=== PATIENT | male | born 1965 | race Caucasian/White ===

== ENCOUNTER 2020-09-07 07:24 | Observation (INO) | payer BC ==
[2020-09-07] MEDS ORDERED: ONDANSETRON 4 MG/2 ML VIAL ONE (07:59)
[2020-09-07] MEDS ORDERED: FENTANYL CITR 100 MCG/2 ML ONE (07:59)
[2020-09-07] MEDS ORDERED: NA CHLORIDE 0.9% 1,000 ML ONE (07:59)
[2020-09-07 08:32] LABS: Absolute Lymphocytes (CBC) 1.9 K/uL (0.7-4.9); Basophils % 0.5 % (0-1.3); Hematocrit 49.6 % (39.6-49.0); Lymphocytes % 13.5 % (15.3-44.8); MPV 8.2 fL (7.6-11.3); RBC Red Blood Cell Count 5.72 M/uL (4.33-5.43)
[2020-09-07 08:39] LABS: Urine Blood NEGATIVE (NEG); Urine Glucose NEGATIVE (NEG); Urine Protein NEGATIVE (NEG)
--- NOTE | 2020-09-07 08:39 | RAD REPORT ---
EXAM DESCRIPTION: CT - Chest For Pe Angio - 09/07/2020 8:25 am CLINICAL HISTORY: Dyspnea;PE, chest pain COMPARISON: Chest Single View dated 09/07/2020 TECHNIQUE: Dynamically enhanced 3 mm thick images of the chest were obtained during administration o f approximately 150mL Isovue 370 IV contrast. Coronal and oblique MIP reconstruction images were gene rated and reviewed. Exam utilizes a protocol to evaluate the pulmonary arterial tree. All CT scans are performed using dose optimization technique as appropriate and may include automated exposure control or mA/KV adjustment according to patient size. FINDINGS: No pulmonary emboli are identified. The aorta as imaged shows no acute or suspicious finding. No pericardial thickening or effusion. No infiltrate or mass in the lung parenchyma. No pleural effusion or pleural thickening. No mediastinal or hilar suspicious masses. No chest wall masses or abnormal axillary lymphadenopathy. No displaced rib fracture or suspicious rib lesion. IMPRESSION: No pulmonary emboli identified. No other significant or suspicious findings.
[2020-09-07 08:50] LABS: ALT/SGPT 34 U/L (12-78); AST/SGOT 13 U/L (15-37); Albumin 4.2 g/dL (3.4-5.0); Alkaline Phosphatase 52 U/L (45-117); BUN Blood Urea Nitrogen 21 mg/dL (7-18); Bicarbonate 28 mmol/L (21-32); Bilirubin Direct < 0.1 mg/dL (0-0.2); Bilirubin Total 0.7 mg/dL (0.2-1.0); Glucose Level 134 mg/dL (74-106); Lipase 134 U/L (73-393); Magnesium 2.1 mg/dL (1.8-2.4); NT PRO-BNP 11 pg/mL (<125); Potassium 4.2 mmol/L (3.5-5.1); Protein, Total 7.4 g/dL (6.4-8.2); Sodium Level 137 mmol/L (136-145); Troponin (Emerg Dept Use Only) < 0.02 ng/mL (0.0-0.045)
[2020-09-07 08:54] LABS: Protime INR 0.98
--- NOTE | 2020-09-07 09:24 | RAD REPORT ---
EXAM DESCRIPTION: RAD - Chest Single View - 09/07/2020 8:04 am CLINICAL HISTORY: CHEST PAIN COMPARISON: None TECHNIQUE: AP portable chest image was obtained 09/07/2020 8:04 am . FINDINGS: No focal mass or consolidation. Interstitial pattern is accentuated by under penetrated [place] and body habitus affects. Heart and vasculature are normal. No measurable pleural effusion an d no pneumothorax. No acute bony abnormality seen. No acute aortic findings suspected. IMPRESSION: No acute cardiopulmonary process.
--- NOTE | 2020-09-07 09:37 | ER ---
Nurse's Notes [facility] Name: Kye Marley Age: 54 yrs Sex: Male : 1965 Arrival Date: 09/07/2020 Time: 07:25 Bed 15 Private MD: Diagnosis: Chest pain, unspecified;Essential (primary) hypertension;Type 2 diabetes mellitus Presentation: 09/07 07:34 Chief complaint: Patient states: "I THINK I'M HAVING A HEART ATTACK" SUBSTERNAL "SHARP" bp CP SINCE 0300, REPRODUCIBLE WITH MOVEMENT AND INSPIRATION. Coronavirus screen: At this time, the client does not indicate any symptoms associated with coronavirus-19. Ebola Screen: No symptoms or risks identified at this time. Initial Sepsis Screen: Does the patient meet any 2 criteria? No. Patient's initial sepsis screen is negative. Does the patient have a suspected source of infection? No. Patient's initial sepsis screen is negative. Risk Assessment: Do you want to hurt yourself or someone else? Patient reports no desire to harm self or others. Onset of symptoms was September 07, 2020 at 03:00. 07:34 Method Of Arrival: Ambulatory bp 07:34 Acuity: VALDEZ 2 bp 07:34 Care prior to arrival: Medication(s) given: ASA, 81 mg, x 2. bp Triage Assessment: 07:34 General: Appears distressed, comfortable, Behavior is cooperative, appropriate for age, bp anxious. Pain: Complains of pain in mid-sternal area. EENT: No deficits noted. Neuro: No deficits noted. Cardiovascular: Reports chest pain, Rhythm is sinus rhythm. Respiratory: No deficits noted. GI: No signs and/or symptoms were reported involving the gastrointestinal system. : No signs and/or symptoms were reported regarding the genitourinary system. Derm: No deficits noted. Musculoskeletal: No deficits noted. Historical: - Allergies: 07:38 Morphine; bp - Home Meds: 07:38 metformin 500 mg Oral tr24 1 tab once daily [Active]; omeprazole 40 mg Oral cpDR 1 cap bp once daily [Active]; lisinopril 20 mg Oral tab 1 tab once daily [Active]; Simvastatin Oral [Active]; 07:38 Bupropion Oral [Active]; bp - PMHx: 07:38 Diabetes - NIDDM; GERD; Hypertension; bp - Immunization history:: Adult Immunizations up to date. - Social history:: Smoking status: Patient denies any tobacco usage or history of. - Family history:: not pertinent. Screenin:40 Abuse screen: Denies threats or abuse. Denies injuries from another. Nutritional bp screening: No deficits noted. Tuberculosis screening: No symptoms or risk factors identified. Fall Risk None identified. Assessment: 07:40 General: SEE TRIAGE NOTE. bp 08:30 Reassessment: Patient appears in no apparent distress at this time. Patient and/or bp family updated on plan of care and expected duration. Pain level reassessed. Patient is alert, oriented x 3, equal unlabored respirations, skin warm/dry/pink. PT RETURNED FROM CT. 10:30 Reassessment: Patient appears in no apparent distress at this time. No changes from bp previously documented assessment. Patient and/or family updated on plan of care and expected duration. Pain level reassessed. Patient is alert, oriented x 3, equal unlabored respirations, skin warm/dry/pink. ADMIT INITIATED. 12:30 Reassessment: Patient appears in no apparent distress at this time. No changes from bp previously documented assessment. Patient and/or family updated on plan of care and expected duration. Pain level reassessed. Patient is alert, oriented x 3, equal unlabored respirations, skin warm/dry/pink. PT SEEN BY HOSPITALIST, ADMIT IN PROCESS. 13:30 Reassessment: Patient and/or family updated on plan of care and expected duration. Pain ll1 level reassessed. 14:40 Reassessment: See [facility] for further admission charting/details. ER HOLD. ll1 17:18 Pain: Pain does not radiate. Pain began 1 day ago. ll1 Vital Signs: 07:34 BP 138 / 88; Pulse 94; Resp 16; Temp 98; Pulse Ox 100% ; Weight 101.6 kg; Height 5 ft. bp 7 in. (170.18 cm); 08:30 BP 128 / 79; Pulse 70; Resp 16; Pulse Ox 100% ; bp 09:30 BP 140 / 91; Pulse 96; Resp 9; Pulse Ox 99% ; bp 10:30 BP 100 / 76; Pulse 87; Resp 15; Pulse Ox 98% ; bp 11:30 BP 123 / 92; Pulse 89; Resp 18; Pulse Ox 97% ; bp 12:30 BP 98 / 60; Pulse 96; Resp 13; Pulse Ox 97% ; bp 17:19 BP 111 / 84; Pulse 87; Resp 17; Temp 98.6; Pulse Ox 98% on R/A; Pain 2/10; ll1 07:34 Body Mass Index 35.08 (101.60 kg, 170.18 cm) bp ED Course: 07:25 Patient arrived in ED. ds1 07:28 Miquel Shankar MD is Attending Physician. marguerite 07:34 Montana Cummins, JOANNE is Primary Nurse. bp 07:34 Arm band placed on. bp 07:35 Triage completed. bp 07:40 Patient has correct armband on for positive identification. Placed in gown. Bed in low bp position. Call light in reach. Side rails up X2. Adult w/ patient. monitor worker on. Pulse ox on. NIBP on. 07:40 Patient maintains SpO2 saturation greater than 95% on room air. bp 08:01 XRAY Chest (1 view) Sent. bp 08:04 XRAY Chest (1 view) In Process Unspecified. EDMS 08:10 Inserted saline lock: 20 gauge in right antecubital area, using aseptic technique. bp Blood collected. 08:25 CT Chest For PE Angio In Process Unspecified. EDMS 09:35 Joe Goncalves MD is Hospitalizing Provider. marguerite 17:17 No provider procedures requiring assistance completed. Patient admitted, IV remains in ll1 place. Administered Medications: 08:00 CANCELLED (Other Intervention Used): morphine 4 mg IVP once; RASS on ADMIN: Combtv4, bp Very Agttd3, Agttd2, Rstlss1, AlertClm0, Drwsy-1, Lt Sdtn-2, Mod Sdtn-3, Dp Sdtn-4, UnArsble-5 08:10 Drug: NS 0.9% 1000 ml Route: IV; Rate: 1 bolus; Site: right antecubital; bp 12:43 Follow up: IV Status: Completed infusion; IV Intake: 1000ml bp 08:13 Not Given (Patient Refused): Zofran (Ondansetron) 4 mg IVP once; over 2 minutes bp 08:13 Not Given (Patient Refused): fentaNYL (PF) 50 mcg IVP once; RASS on ADMIN: Combtv4, bp Very Agttd3, Agttd2, Rstlss1, AlertClm0, Drwsy-1, Lt Sdtn-2, Mod Sdtn-3, Dp Sdtn-4, UnArsble-5 10:10 Drug: Pepcid 20 mg Route: IVP; Site: right antecubital; bp 12:42 Follow up: Response: No adverse reaction bp 10:10 Drug: Lovenox 100 mg Route: Sub-Q; Site: right lower abdomen; bp 12:42 Follow up: Response: No adverse reaction bp 10:10 Drug: GI Cocktail without - (Maalox Suspension 30 ml, Lidocaine Liquid 2 % 15 bp ml) Route: PO; 12:42 Follow up: Response: No adverse reaction bp Intake: 12:43 IV: 1000ml; Total: 1000ml. bp Outcome: 09:37 Decision to Hospitalize by Provider. [facility] 17:17 Admitted to Med/surg accompanied by tech, via wheelchair, room 218, with chart, Report ll1 called to Armida Cummings RN on . 17:17 Condition: stable 17:23 Patient left the ED. ll1 Signatures: Dispatcher [employer] EDMS Miquel Shankar MD MD cha Sanford, Demi ds1 Montana Cummins, JOANNE RN Anne Burks RN RN ll1 Corrections: (The following items were deleted from the chart) 12:42 12:41 Reassessment: Patient appears in no apparent distress at this time. No changes bp from previously documented assessment. Patient and/or family updated on plan of care and expected duration. Pain level reassessed. Patient is alert, oriented x 3, equal unlabored respirations, skin warm/dry/pink. PT SEEN BY HOSPITALIST, ADMIT IN PROCESS bp
--- NOTE | 2020-09-07 09:37 | EDPHYS ---
Physician Documentation [facility] Name: Kye Marley Age: 54 yrs Sex: Male : 1965 Arrival Date: 09/07/2020 Time: 07:25 Bed 15 Private MD: ED Physician Miquel Shankar HPI: 09/07 07:37 This 54 yrs old Male presents to ER via Ambulatory with complaints of Chest marguerite Pain. 09:30 The patient or guardian reports chest pain that is located primarily in the substernal marguerite area, anterior chest wall, bilaterally. Onset: 5 hour(s) ago. The pain radiates to neck. Associated signs and symptoms: The patient has no apparent associated signs or symptoms. The chest pain is described as burning, causing indigestion. Duration: The patient or guardian reports a single episode, that is now resolved. Modifying factors: The symptoms are alleviated by nothing. the symptoms are aggravated by nothing. Severity of pain: At its worst the pain was moderate in the emergency department the pain has improved moderately. The patient has experienced similar episodes in the past, a few times, but today's symptoms are worse, more painful. Historical: - Allergies: 07:38 Morphine; bp - Home Meds: 07:38 metformin 500 mg Oral tr24 1 tab once daily [Active]; omeprazole 40 mg Oral cpDR 1 cap bp once daily [Active]; lisinopril 20 mg Oral tab 1 tab once daily [Active]; Simvastatin Oral [Active]; 07:38 Bupropion Oral [Active]; bp - PMHx: 07:38 Diabetes - NIDDM; GERD; Hypertension; bp - Immunization history:: Adult Immunizations up to date. - Social history:: Smoking status: Patient denies any tobacco usage or history of. - Family history:: not pertinent. ROS: 09:30 Constitutional: Negative for fever, chills, and weight loss, Eyes: Negative for injury, marguerite pain, redness, and discharge, ENT: Negative for injury, pain, and discharge, Neck: Negative for injury, pain, and swelling, Respiratory: Negative for shortness of breath, cough, wheezing, and pleuritic chest pain, Abdomen/GI: Negative for abdominal pain, nausea, vomiting, diarrhea, and constipation, Back: Negative for injury and pain, : Negative for injury, bleeding, discharge, and swelling, MS/Extremity: Negative for injury and deformity, Skin: Negative for injury, rash, and discoloration, Neuro: Negative for headache, weakness, numbness, tingling, and seizure, Psych: Negative for depression, anxiety, suicide ideation, homicidal ideation, and hallucinations, Allergy/Immunology: Negative for hives, rash, and allergies, Endocrine: Negative for neck swelling, polydipsia, polyuria, polyphagia, and marked weight changes, Hematologic/Lymphatic: Negative for swollen nodes, abnormal bleeding, and unusual bruising. 09:30 Cardiovascular: Positive for chest pain, of the chest. Exam: 07:38 ECG was reviewed by the Attending Physician. marguerite 09:30 Constitutional: This is a well developed, well nourished patient who is awake, alert, marguerite and in no acute distress. Head/Face: Normocephalic, atraumatic. Eyes: Pupils equal round and reactive to light, extra-ocular motions intact. Lids and lashes normal. Conjunctiva and sclera are non-icteric and not injected. Cornea within normal limits. Periorbital areas with no swelling, redness, or edema. ENT: Nares patent. No nasal discharge, no septal abnormalities noted. Tympanic membranes are normal and external auditory canals are clear. Oropharynx with no redness, swelling, or masses, exudates, or evidence of obstruction, uvula midline. Mucous membranes moist. Neck: Trachea midline, no thyromegaly or masses palpated, and no cervical lymphadenopathy. Supple, full range of motion without nuchal rigidity, or vertebral point tenderness. No Meningismus. Chest/axilla: Normal chest wall appearance and motion. Nontender with no deformity. No lesions are appreciated. Cardiovascular: Regular rate and rhythm with a normal S1 and S2. No gallops, murmurs, or rubs. Normal PMI, no JVD. No pulse deficits. Respiratory: Lungs have equal breath sounds bilaterally, clear to auscultation and percussion. No rales, rhonchi or wheezes noted. No increased work of breathing, no retractions or nasal flaring. Abdomen/GI: Soft, non-tender, with normal bowel sounds. No distension or tympany. No guarding or rebound. No evidence of tenderness throughout. Back: No spinal tenderness. No costovertebral tenderness. Full range of motion. Male : Normal genitalia with no discharge or lesions. Skin: Warm, dry with normal turgor. Normal color with no rashes, no lesions, and no evidence of cellulitis. MS/ Extremity: Pulses equal, no cyanosis. Neurovascular intact. Full, normal range of motion. Neuro: Awake and alert, GCS 15, oriented to person, place, time, and situation. Cranial nerves II-XII grossly intact. Motor strength 5/5 in all extremities. Sensory grossly intact. Cerebellar exam normal. Normal gait. Psych: Awake, alert, with orientation to person, place and time. Behavior, mood, and affect are within normal limits. Vital Signs: 07:34 BP 138 / 88; Pulse 94; Resp 16; Temp 98; Pulse Ox 100% ; Weight 101.6 kg; Height 5 ft. bp 7 in. (170.18 cm); 08:30 BP 128 / 79; Pulse 70; Resp 16; Pulse Ox 100% ; bp 09:30 BP 140 / 91; Pulse 96; Resp 9; Pulse Ox 99% ; bp 10:30 BP 100 / 76; Pulse 87; Resp 15; Pulse Ox 98% ; bp 11:30 BP 123 / 92; Pulse 89; Resp 18; Pulse Ox 97% ; bp 12:30 BP 98 / 60; Pulse 96; Resp 13; Pulse Ox 97% ; bp 17:19 BP 111 / 84; Pulse 87; Resp 17; Temp 98.6; Pulse Ox 98% on R/A; Pain 2/10; ll1 07:34 Body Mass Index 35.08 (101.60 kg, 170.18 cm) bp MDM: 07:28 Patient medically screened. marguerite 09:33 Differential diagnosis: abnormal EKG, acute myocardial infarction, acute pericarditis, marguerite anxiety, coronary artery disease cholecystitis, Cholelithiasis pancreatitis, peptic ulcer disease, pleurisy, pneumonia, pulmonary embolus, stable angina, unstable angina. HEART Score: History: Slightly Suspicious (0), ECG: Normal (0), Age: > 45 and < 65 years (1), Risk Factors: > or = 3 Risk factors for atherosclerotic disease (2), [Hypercholesterolemia] [Hypertension] [DM] [Active Smoker] [+ Family HX] [Obesity] Troponin: < or = 1 x Normal Limit (0). Data reviewed: vital signs, nurses notes, lab test result(s), EKG, radiologic studies, plain films. 09:37 The patient was given aspirin in the Emergency Department. The patient's deep vein marguerite thrombosis risk score was calculated as follows: Total Score: 0. This patient was found to be at low risk for a deep vein thrombosis by using the Well's assessment criteria. The patient's pulmonary embolism risk score was calculated as follows: Total Score: 0-2 points. This patient was found to be at low risk for a pulmonary embolism by using the Well's assessment criteria. CAROLYN Risk Score: 1 - Three or more CAD risk factors, 1- Known CAD, 1 - ASA use in past 7 days, 1 - Recent [<24hrs] Severe Angina, TOTAL SCORE = 4. Data interpreted: media monitor: rate is 98 beats/min, rhythm is regular, Pulse oximetry: on room air is 100 %. Test interpretation: by ED physician or midlevel provider: ECG, plain radiologic studies. Counseling: I had a detailed discussion with the patient and/or guardian regarding: the historical points, exam findings, and any diagnostic results supporting the discharge/admit diagnosis, the presence of at least one elevated blood pressure reading (>120/80) during this emergency department visit, lab results, the need for further work-up and treatment in the hospital. 09/07 07:37 Order name: Basic Metabolic Panel [facility] 09/07 07:37 Order name: CBC with Diff; Complete Time: 09:27 [facility] 09/07 07:37 Order name: LFT's; Complete Time: 09:27 [facility] 09/07 07:37 Order name: Magnesium; Complete Time: 09:27 [facility] 09/07 07:37 Order name: NT PRO-BNP; Complete Time: 09:27 [facility] 09/07 07:37 Order name: PT-INR; Complete Time: 09:27 [facility] 09/07 07:37 Order name: Troponin (emerg Dept Use Only); Complete Time: 09:27 [facility] 09/07 07:37 Order name: Lipase; Complete Time: 09:27 [facility] 09/07 07:37 Order name: UDS [facility] 09/07 07:38 Order name: Basic Metabolic Panel; Complete Time: 09:27 EDMS 09/07 08:25 Order name: Urine Dipstick--Ancillary (enter results); Complete Time: 09:27 eb 09/07 08:48 Order name: CREATININE WHOLE BLOOD; Complete Time: 09:27 [facility] 09/07 10:20 Order name: Basic Metabolic Panel [facility] 09/07 10:20 Order name: Basic Metabolic Panel [facility] 09/07 07:37 Order name: XRAY Chest (1 view); Complete Time: 09:28 [facility] 09/07 07:37 Order name: EKG; Complete Time: 07:38 [facility] 09/07 07:37 Order name: CT Chest For PE Angio; Complete Time: 09:28 [facility] 09/07 10:20 Order name: Lipid Profile [facility] 09/07 10:20 Order name: Lipid Profile [facility] 09/07 10:20 Order name: Troponin I [facility] 09/07 10:20 Order name: Troponin I [facility] 09/07 10:20 Order name: Troponin I [facility] 09/07 10:21 Order name: Echo with Doppler [facility] 09/07 07:37 Order name: Cardiac monitoring; Complete Time: 07:42 [facility] 09/07 07:37 Order name: EKG - Nurse/Tech; Complete Time: 07:42 [facility] 09/07 07:37 Order name: IV Saline Lock; Complete Time: 08:13 [facility] 09/07 07:37 Order name: Labs collected and sent; Complete Time: 08:13 [facility] 09/07 07:37 Order name: O2 Per Protocol; Complete Time: 07:42 [facility] 09/07 07:37 Order name: O2 Sat Monitoring; Complete Time: 07:42 [facility] 09/07 10:20 Order name: CONS Physician Consult [facility] 09/07 10:21 Order name: EKG Electrocardiogram [facility] 09/07 10:21 Order name: EKG Electrocardiogram [facility] EC:38 Rate is 97 beats/min. Rhythm is regular. QRS [place] is Normal. NC interval is normal. QRS marguerite interval is normal. QT interval is normal. No Q waves. T waves are Normal. No ST changes noted. Clinical impression: Normal ECG and No evidence of ischemia. Interpreted by me. Reviewed by me. Administered Medications: 08:00 CANCELLED (Other Intervention Used): morphine 4 mg IVP once; RASS on ADMIN: Combtv4, bp Very Agttd3, Agttd2, Rstlss1, AlertClm0, Drwsy-1, Lt Sdtn-2, Mod Sdtn-3, Dp Sdtn-4, UnArsble-5 08:10 Drug: NS 0.9% 1000 ml Route: IV; Rate: 1 bolus; Site: right antecubital; bp 12:43 Follow up: IV Status: Completed infusion; IV Intake: 1000ml bp 08:13 Not Given (Patient Refused): Zofran (Ondansetron) 4 mg IVP once; over 2 minutes bp 08:13 Not Given (Patient Refused): fentaNYL (PF) 50 mcg IVP once; RASS on ADMIN: Combtv4, bp Very Agttd3, Agttd2, Rstlss1, AlertClm0, Drwsy-1, Lt Sdtn-2, Mod Sdtn-3, Dp Sdtn-4, UnArsble-5 10:10 Drug: Pepcid 20 mg Route: IVP; Site: right antecubital; bp 12:42 Follow up: Response: No adverse reaction bp 10:10 Drug: Lovenox 100 mg Route: Sub-Q; Site: right lower abdomen; bp 12:42 Follow up: Response: No adverse reaction bp 10:10 Drug: GI Cocktail without - (Maalox Suspension 30 ml, Lidocaine Liquid 2 % 15 bp ml) Route: PO; 12:42 Follow up: Response: No adverse reaction bp Disposition: 09/07/20 09:37 Hospitalization ordered by Joe Goncalves for Observation. Preliminary diagnosis are Chest pain, unspecified, Essential (primary) hypertension, Type 2 diabetes mellitus. - Bed requested for Telemetry/MedSurg (observation). - Status is Observation. ll1 - Condition is Stable. - Problem is new. - Symptoms have improved. Signatures: Dispatcher [employer] [facility] Miquel Shankar MD MD cha Williams, Irene, RN [place] Rushing RN RN bp Botello, Elizabeth eb Lewis, Lynsay, RN RN ll1 Corrections: (The following items were deleted from the chart) 08:00 07:37 morphine 4 mg IVP once; RASS on ADMIN: Combtv4, Very Agttd3, Agttd2, Rstlss1, bp AlertClm0, Drwsy-1, Lt Sdtn-2, Mod Sdtn-3, Dp Sdtn-4, UnArsble-5 ordered. marguerite 13:42 09:37 Hospitalization Ordered by Joe Goncalves MD for Observation. Preliminary iw diagnosis is Chest pain, unspecified; Essential (primary) hypertension; Type 2 diabetes mellitus. Bed requested for Telemetry/MedSurg (observation). Status is Observation. Condition is Stable. Problem is new. Symptoms have improved. marguerite 16:10 13:42 09/07/2020 09:37 Hospitalization Ordered by Joe Goncalves MD for Observation. eb Preliminary diagnosis is Chest pain, unspecified; Essential (primary) hypertension; Type 2 diabetes mellitus. Bed requested for [facility] ER HOLD. Status is Observation. Condition is Stable. Problem is new. Symptoms have improved. iw 17:23 16:10 09/07/2020 09:37 Hospitalization Ordered by Joe Goncalves MD for Observation. ll1 Preliminary diagnosis is Chest pain, unspecified; Essential (primary) hypertension; Type 2 diabetes mellitus. Bed requested for Telemetry/MedSurg (observation). Status is Observation. Condition is Stable. Problem is new. Symptoms have improved. eb
[2020-09-07] MEDS ORDERED: MORPHINE 4 MG/ML SYR IV PRN (10:17)
[2020-09-07] MEDS ORDERED: ACETAMINOPHEN 500 MG TAB PO PRN (10:17)
[2020-09-07] MEDS ORDERED: FAMOTIDINE 20 MG/2 ML VIAL IV ONE (10:39)
[2020-09-07] MEDS ORDERED: MAGNES/ALUMIN/SIMET 30ML UCUP ONE (10:39)
[2020-09-07] MEDS ORDERED: ENOXAPARIN 100 MG/ML SYR SQ ONE (10:39)
[2020-09-07] MEDS ORDERED: LIDOCAINE VISCOUS 2% SOLN 15 ML UDC ONE (10:39)
[2020-09-07 11:08] LABS: Barbiturates NEGATIVE (NEGATIVE); Benzodiazepines NEGATIVE (NEGATIVE); Cocaine NEGATIVE (NEGATIVE); METHAMPHETAM NEGATIVE (NEGATIVE); Methadone NEGATIVE (NEGATIVE); Opiates NEGATIVE (NEGATIVE); Phencyclidine NEGATIVE (NEGATIVE); THC Cannibis NEGATIVE (NEGATIVE)
--- NOTE | 2020-09-07 12:47 | P.HP ---
Certification for Inpatient Patient admitted to: Observation With expected LOS: <2 Midnights Patient will require the following post-hospital care: None Practitioner: I am a practitioner with admitting privileges, knowledge of patient current condition, hospital course, and medical plan of care. Services: Services provided to patient in accordance with Admission requirements found in Title 42 Section 412.3 of the Code of Federal Regulations Patient History Date of Service: 09/07/20 Reason for admission: Chest pain rule out acute coronary syndrome History of Present Illness: Patient is a very pleasant 54-year-old gentleman with a history of diabetes and hypertension along with dyslipidemia who presented to the emergency room with chest pain which woke him up from his sleep at 3:30 a.m. in the morning. His chest pain was mainly in the sternal region. It did not radiate. He states that he actually had no other symptoms except for the pain right along the sternal region. It did not radiate, he had no shortness of breath, no diaphoresis, no nausea, no lightheadedness. Since the chest pain was not improving after 3 hr he came into the emergency room for further evaluation. He has had gastroesophageal reflux disease and has taken Pepcid. He did take some Pepcid which alleviated some of the symptoms. He has been burping quite a bit s gui then he has notice that that is helped as well. He is concerned that it is his heart that is causing the problem so he wanted to get that checked out here in the emergency room. His initial troponins and EKG have been unremarkable. Will go ahead and Consult Cardiology and get their recommendations. Echocardiogram is pending as well. Patient remains very active. He states that he fishes with his buddies every Thursday. This past Thursday when he went fishing he did not have any problems except for his right shoulder with a little sore afterwards any made has some elbow tendinitis on the right side. He did not have any chest pain. He normally stays there for numerous hrs. 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 moist/pink, EOMI, Sclerae nonicteric Neck: Supple, 2+ carotid pulse no bruit, No LAD, Without JVD or thyroid abnormality Respiratory: Clear to auscultation bilaterally, Normal air movement Cardiovascular: Regular rate/rhythm, Normal S1 S2, No murmurs Gastrointestinal: Normal bowel sounds, Soft and benign, Non-distended, No tenderness Musculoskeletal: No clubbing, No swelling, No tenderness Integumentary: No rashes Neurological: Normal gait, Normal speech, Normal strength at 5/5 x4 extr, Normal tone, Sensation intact, Cranial nerves 3-12 intact, Normal affect Lymphatics: No axilla or inguinal lymphadenopathy - Studies Laboratory Data (last 24 hrs) 09/07/20 08:10: PT 11.6, INR 0.98 09/07/20 08:10: WBC 14.2 H, Hgb 16.9, Hct 49.6 H, Plt Count 288 09/07/20 08:10: Sodium 137, Potassium 4.2, BUN 21 H, Creatinine 1.17, Glucose 134 H, Magnesium 2.1, Total Bilirubin 0.7, AST 13 L, ALT 34, Alkaline Phosphatase 52, Lipase 134 Assessment & Plan - Problems (Diagnosis) (1) Chest pain, rule out acute myocardial infarction Current Visit: Yes Status: Acute (2) Hypertension Current Visit: Yes Status: Acute (3) Type 2 diabetes mellitus Current Visit: Yes Status: Acute (4) Dyslipidemia Current Visit: Yes Status: Acute - Plan 1. Serial troponins and EKG 2. Cardiology consultation 3. Echocardiogram and stress test if cardiology is agreeable 4. Anti-platelet therapy, anticoagulation, beta-tang, statin, and O2 as needed 5. IV morphine for pain 6. Nitro p.r.n. 7. GI and DVT prophylaxis Discharge Plan: Home Plan to discharge in: 24 Hours - Advance Directives Does patient have a Living Will: No Does patient have a Durable POA for Healthcare: No - Code Status/Comfort Care Code Status Assessed: Yes Code Status: Full Code Critical Care: No Time Spent Managing PTS Care (In Minutes): 50
[2020-09-07 14:39] VITALS: BMI 33.1
[2020-09-07] MEDS ORDERED: INFLUENZA VACCINE (for 3y+) 0.5 ML DOSE IMVAC ONE (16:00)
[2020-09-07] MEDS ORDERED: PNEUMOCOCCAL VACCINE 0.5 ML IMVAC ONE (16:00)
[2020-09-07] MEDS ORDERED: KETOROLAC 30 MG/ML INJ IV ONE (18:52)
[2020-09-07] MEDS: METOPROLOL TAR 25 MG TAB PO SCH (21:52)
--- NOTE | 2020-09-07 22:16 | CON ---
Date of Consultation: 09/07/2020 Reason For Consultation: Chest pain. History Of Present Illness: Mr. Marley is a 54-year-old white male, who has a history of hypertensio n, new onset diabetes, dyslipidemia, family history of heart disease, previous tobacco use, came in w ith chest pain that started at 3:30 in the morning. He described it as a substernal chest pressure t hat does not radiate anywhere and is better with belching and passing gas. Denied PND, orthopnea, pe abdoulaye edema, palpitation, or syncope. Denied any nausea, vomiting, diaphoresis. He denied any fever o r chills or cough. He just recently started Lamictal, metformin, and bupropion for assistance in jessica tting tobacco over the last few weeks. By the time I saw him, he has already ruled out for an [place]. Past Medical History: As stated above. Allergies: HE IS ALLERGIC TO MORPHINE. Review of Systems: Negative. Social History: Positive for previous tobacco. He stated he just quit. Family History: Positive for heart disease. Medications: At home include Lipitor, Lamictal, metformin, bupropion, omeprazole, simvastatin, and l isinopril. Physical Examination: Vital Signs: Stable. Afebrile. HEENT: Negative. Neck: Supple without any bruit, lymphadenopathy, JVD, or thyromegaly. Chest: Clear to auscultation and percussion. Cardiac: Regular rhythm and rate. No murmurs, gallops, or rubs. Abdomen: Benign. Extremities: No clubbing, cyanosis, or edema. Diagnostic Data: All within normal limit. Chest x-ray was normal. EKG was normal. CT angiogram of the chest was normal. Impression And Plan: I think Mr. Marley is most likely having symptoms of gastroesophageal reflux di sease. I would continue his home regimen. I am comfortable with him going home whenever it is okay with Dr. Goncalves. The patient has a normal EKG, normal troponin, normal CT angiogram. I think he shoul d have a stress test done as an outpatient and I will make an arrangement for that. Echocardiogram i s pending for today, but has not been done. I think he should have an outpatient MPI. JAZMINE/BROOKE Voice ID: [id number] Report ID: [id number]
[2020-09-08 02:56] VITALS: O2SAT 96
[2020-09-08 05:38] LABS: Absolute Lymphocytes (CBC) 1.8 K/uL (0.7-4.9); Basophils % 0.7 % (0-1.3); Hematocrit 44.5 % (39.6-49.0); Lymphocytes % 19.1 % (15.3-44.8); MPV 7.9 fL (7.6-11.3)
[2020-09-08 06:06] LABS: Potassium 4.3 mmol/L (3.5-5.1)
--- NOTE | 2020-09-08 08:45 | P.DS ---
Discharge Date: 09/08/20 Disposition: ROUTINE DISCHARGE Discharge Condition: GOOD Reason for Admission: Chest pain rule out acute coronary syndrome Consultations: CARDIOLOGY - Problems (1) Chest pain, rule out acute myocardial infarction Status: Acute (2) Hypertension Status: Acute (3) Type 2 diabetes mellitus Status: Acute (4) Dyslipidemia Status: Acute Brief History of Present Illness: Patient is a very pleasant 54-year-old gentleman with a history of diabetes and hypertension along with dyslipidemia who presented to the emergency room with chest pain which woke him up from his sleep at 3:30 a.m. in the morning. His chest pain was mainly in the sternal region. It did not radiate. He states that he actually had no other symptoms except for the pain right along the sternal region. It did not radiate, he had no shortness of breath, no di aphoresis, no nausea, no lightheadedness. Since the chest pain was not improving after 3 hr he came into the emergency room for further evaluation. He has had gastroesophageal reflux disease and has taken Pepcid. He did take some Pepcid which alleviated some of the symptoms. He has been burping quite a bit since then he has notice that that is helped as well. He is concerned that it is his heart that is causing the problem so he wanted to get that checked out here in the emergency room. His initial troponins and EKG have been unremarkable. Will go ahead and Consult Cardiology and get their recommendations. Echocardiogram is pending as well. Patient remains very active. He states that he fishes with his buddies every Thursday. This past Thursday when he went fishing he did not have any problems except for his right shoulder with a little sore afterwards any made has some elbow tendinitis on the right side. He did not have any chest pain. He normally stays there for numerous hrs. Hospital Course: Patient's chest pain has improved. Cardiac status was much better. At this time, patient is stable for discharge and will need follow up with cardiology as an outpatient. If his chest pain worsens return to the emergency room in 1-2 weeks. Vital Signs/Physical Exam: Temp Pulse Resp BP Pulse Ox 98.3 F 77 17 98/54 L 95 09/08/20 04:00 09/08/20 04:00 09/08/20 04:00 09/08/20 04:00 09/08/20 04:00 General: Alert, In no apparent distress, Oriented x3 Laboratory Data at Discharge: WBC 9.5 K/uL (4.3-10.9) D 09/08/20 05:08 Hgb 15.3 g/dL (13.6-17.9) 09/08/20 05:08 Hct 44.5 % (39.6-49.0) 09/08/20 05:08 Plt Count 279 K/uL (152-406) 09/08/20 05:08 PT 11.6 SECONDS (9.5-12.5) 09/07/20 08:10 INR 0.98 09/07/20 08:10 Sodium 138 mmol/L (136-145) 09/08/20 05:08 Potassium 4.3 mmol/L (3.5-5.1) 09/08/20 05:08 BUN 17 mg/dL (7-18) 09/08/20 05:08 Creatinine 1.02 mg/dL (0.55-1.3) 09/08/20 05:08 Glucose 119 mg/dL (74-106) H 09/08/20 05:08 Magnesium 2.1 mg/dL (1.8-2.4) 09/07/20 08:10 Total Bilirubin 0.7 mg/dL (0.2-1.0) 09/07/20 08:10 AST 13 U/L (15-37) L 09/07/20 08:10 ALT 34 U/L (12-78) 09/07/20 08:10 Alkaline Phosphatase 52 U/L (45-117) 09/07/20 08:10 Troponin I < 0.02 ng/mL (0.0-0.045) 09/08/20 00:43 Triglycerides 137 mg/dL (<150) 09/08/20 05:08 Cholesterol 128 mg/dL (<200) 09/08/20 05:08 HDL Cholesterol 37 mg/dL (40-60) L 09/08/20 05:08 Cholesterol/HDL Ratio 3.46 09/08/20 05:08 Lipase 134 U/L (73-393) 09/07/20 08:10 Home Medications: Aspirin Chewable [Aspirin Chewable*] 81 mg PO DAILY 09/08/20 Bupropion *Xl* [Wellbutrin XL*] 150 mg PO BID 09/08/20 Lisinopril [Zestril] 10 mg PO DAILY 09/08/20 Metformin ER [Glucophage ER*] 500 mg PO DAILY 09/08/20 Omeprazole 20 mg PO BID 30 Days #60 capsule. 09/08/20 Simvastatin 20 mg PO BEDTIME 09/08/20 terbinafine HCL [Terbinafine HCl] 250 mg PO DAILY 09/08/20 New Medications: Omeprazole 20 mg PO BID 30 Days #60 capsule. Patient Discharge Instructions: OK TO DC IV AND DC HOME. FOLLOW-UP WITH PRIMARY CARE PROVIDER IN 1-2 WEEKS. FOLLOW-UP WITH CARDIOLOGY ON THURSDAY MORNING. RETURN TO THE ER IF THE SYMPTOMS WORSEN. CALL or TEXT DR. MORALES AT [phone] IF ANY QUESTIONS REGARDING HOSPITAL STAY. PLEASE CALL THE FLOOR AT [phone] IF ANY MEDICATION OR NURSING QUESTIONS. Diet: ADA (HEART HEALTHY DIET) Activity: Ad radha Followup: Bebeto Lock MD [ACTIVE - CAN ADMIT] - NONE,NONE [Primary Care Provider] - Time spent managing pt's care (in minutes): 30
[2020-09-08] MEDS: METOPROLOL TAR 25 MG TAB PO SCH (08:49)
[2020-09-08 08:52] VITALS: BP 106/79
[2020-09-08] MEDS ORDERED: ASPIRIN EC 81 MG TAB PO SCH (09:00)
[2020-09-08] MEDS ORDERED: ENOXAPARIN 40 MG/0.4 ML SQ SCH (09:00)
[2020-09-08 10:17] VITALS: TEMP 97.1
--- NOTE | 2020-09-08 20:04 | EKG ---
Test Date: 2020-09-07 Test Time: 07:30:08 Clinical Business Analyst: RIYA MEASUREMENT RESULTS: Intervals: Rate: 97 AR: 164 QRSD: 106 QT: 334 QTc: 424 [place]: P: 71 AR: 164 QRS: 14 T: 66 INTERPRETIVE STATEMENTS: Normal sinus rhythm Normal ECG No previous ECG available for comparison Electronically Signed On 09-08-20 20:01:39 STRIKE PLATE ATTACHER by Bebeto Lock
--- NOTE | 2020-09-10 08:32 | ECHO ---
HEIGHT: 5 ft 8 in WEIGHT: 218 lb 0 oz DATE OF STUDY: 09/07/[address]: Joe Goncalves MD 2-DIMENSIONAL: YES M.MODE: YES DOPPLER: YES COLOR FLOW: YES TDS: YES PORTABLE: YES DEFINITY: BUBBLE STUDY: DIAGNOSIS: CHEST PAIN, RULE OUT ACUTE CORNARY SYNDROME CARDIAC HISTORY: CATHERIZATION: NO SURGERY: NO PROSTHETIC VALVE: NO PACEMAKER: NO MEASUREMENTS (cm) DIASTOLIC (NORMALS) SYSTOLIC (NORMALS) IVSd 1.1 (0.6-1.2) LA Diam 3.1 (1.9-4.0) LVEF 78% LVIDd 4.8 (3.5-5.7) LVIDs 2.6 (2.0-3.5) %FS 45% LVPWd 1.1 (0.6-1.2) Ao Diam 1.9 (2.0-3.7) 2 DIMENSIONAL ASSESSMENT: RIGHT ATRIUM: NORMAL LEFT ATRIUM: NORMAL RIGHT VENTRICLE: NORMAL LEFT VENTRICLE: NORAML TRICUSPID VALVE: NORMAL MITRAL VALVE: NORMAL PULMONIC VALVE: NORMAL AORTIC VALVE: NORMAL PERICARDIAL EFFUSION: NONE AORTIC ROOT: NORMAL LEFT VENTRICULAR WALL MOTION: NORMAL DOPPLER/COLOR FLOW: NORMAL COMMENTS: TECHNICALLY DIFFICULT STUDY. GROSSSLY NORMAL LEFT VENTRICULAR SIZE AND FUNCTION. NO WALL MOTION ABNORMALITY. NO MITRAL VALVE PROLAPSE. TECHNOLOGIST: HANNAH HAMPTON
== END 2020-09-08 11:18 | disposition home or self-care (01) ==
LOC: ER 07:24 → ERHOLD 10:42 → 2ND 17:18
PROVIDERS: ADMIT Hospitalist; ATTEND Hospitalist
DX: R07.9 Chest pain, unspecified (principal); I10 Essential (primary) hypertension; E11.9 Type 2 diabetes mellitus without complications; E78.5 Hyperlipidemia, unspecified; Z79.84 Long term (current) use of oral hypoglycemic drugs; Z87.891 Personal history of nicotine dependence
CPT/HCPCS: 96361; 93005; 93306; 85025 ×2; 80048 ×2; 36415; 83735; 85610; 80061; 82565; 82947; 80076; 80307 ×8; 81003; 84484 ×3; 83690; 83880; 71275; 71045; 96372; 96374; 99285; Q9967; J1650 ×2; J3010; J7030; J2405; G0378 ×3

== ENCOUNTER 2021-03-16 12:37 | Inpatient (IN) | payer BC ==
[2021-03-16 13:27] LABS: Absolute Lymphocytes (CBC) 1.6 K/uL (0.7-4.9); Basophils % 0.4 % (0-1.3); Hematocrit 46.5 % (39.6-49.0); Lymphocytes % 12.5 % (15.3-44.8); MPV 8.4 fL (7.6-11.3); RBC Red Blood Cell Count 5.36 M/uL (4.33-5.43)
[2021-03-16] MEDS ORDERED: MEPERIDINE HCL 50 MG/ML ONE (13:27)
[2021-03-16] MEDS ORDERED: ONDANSETRON 4 MG/2 ML VIAL ONE (13:27)
[2021-03-16 13:46] LABS: BUN Blood Urea Nitrogen 16 mg/dL (7-18); Bicarbonate 25 mmol/L (21-32); Glucose Level 157 mg/dL (74-106); Magnesium 2.1 mg/dL (1.8-2.4); NT PRO-BNP 37 pg/mL (<125); Potassium 4.5 mmol/L (3.5-5.1); Sodium Level 140 mmol/L (136-145); Troponin (Emerg Dept Use Only) < 0.02 ng/mL (0.0-0.045)
[2021-03-16 13:50] LABS: Protime INR 1.07
--- NOTE | 2021-03-16 14:18 | RAD REPORT ---
EXAM DESCRIPTION: RAD - Chest Single View - 03/16/2021 1:06 pm CLINICAL HISTORY: CHEST PAIN COMPARISON: Portable September 2020 TECHNIQUE: AP portable chest image was obtained 03/16/2021 1:06 pm . FINDINGS: No peripheral mass consolidation. Interstitial pattern is prominent but not clearly differ ent. Heart and vasculature are normal. No measurable pleural effusion and no pneumothorax. No acute b adan abnormality seen. No acute aortic findings suspected. IMPRESSION: No acute cardiopulmonary process. Patient has a chronic interstitial pattern is not clearly different from comparison. Mild edema or in filtrate can be masked by the background pattern.
--- NOTE | 2021-03-16 14:28 | RAD REPORT ---
EXAM DESCRIPTION: CT - Angio Aorta For Dissection - 03/16/2021 2:09 pm CLINICAL HISTORY: CHEST PAIN COMPARISON: Portable chest same date TECHNIQUE: Dynamically enhanced 3 mm thick images of the chest, abdomen, and pelvis were obtained du ring administration of approximately 150mL Isovue 370 IV contrast. Sagittal and coronal reconstructio n images were generated using MIP and reviewed. Exam utilizes a protocol to evaluate entire course of the aorta. All CT scans are performed using dose optimization technique as appropriate and may include automated exposure control or mA/KV adjustment according to patient size. FINDINGS: Aorta is normal in diameter with no dissection or other acute aortic findings. Reconstruct ion images show no significant findings. There is tortuosity of the distal aorta and iliac vasculatur e. Pulmonary arteries are normal as well. No cardiomegaly, pericardial thickening or pericardial effusio n. No mass or infiltrate in the lung parenchyma. No pleural thickening, pleural effusion or pneumothorax . No abnormal mediastinal or hilar mass or lymphadenopathy seen. No chest wall mass or abnormal axillar y lymphadenopathy. Celiac, SMA and renal arteries show no suspicious findings. Solid abdominal viscera and bowel show no significant findings. A 4.8 centimeter benign lower pole right renal cyst is present. No mass or a bnormal lymphadenopathy. No free air, free fluid or inflammatory stranding. No urinary bladder abnorm ality. IMPRESSION: Negative CT scan of the aorta. No acute findings on chest, abdomen and upper pelvis examination.
--- NOTE | 2021-03-16 15:37 | ER ---
Nurse's Notes [facility] Name: Kye Marley Age: 55 yrs Sex: Male : 1965 Arrival Date: 03/16/2021 Time: 12:38 Bed 3 Private MD: Diagnosis: Chest pain, unspecified Presentation: 03/16 12:38 Chief complaint: Patient states: CHEST PAIN. Coronavirus screen: At this time, the bp client does not indicate any symptoms associated with coronavirus-19. Ebola Screen: No symptoms or risks identified at this time. Initial Sepsis Screen: Does the patient meet any 2 criteria? No. Patient's initial sepsis screen is negative. Does the patient have a suspected source of infection? No. Patient's initial sepsis screen is negative. Risk Assessment: Do you want to hurt yourself or someone else? Patient reports no desire to harm self or others. Onset of symptoms was March 16, 2021 at 12:00. 12:38 Method Of Arrival: Ambulatory bp 12:38 Acuity: VALDEZ 3 bp Triage Assessment: 12:38 General: Appears distressed, uncomfortable, Behavior is cooperative, appropriate for bp age, anxious. Pain: Complains of pain in chest. EENT: No deficits noted. Neuro: Level of Consciousness is awake, alert, obeys commands, Oriented to Appropriate for age. Cardiovascular: Rhythm is sinus rhythm. Respiratory: No deficits noted. GI: No signs and/or symptoms were reported involving the gastrointestinal system. : No signs and/or symptoms were reported regarding the genitourinary system. Derm: No deficits noted. Musculoskeletal: No deficits noted. Historical: - Allergies: 13:25 Morphine; bp - Home Meds: 13:25 Bupropion Oral [Active]; lisinopril 20 mg Oral tab 1 tab once daily [Active]; metformin bp 500 mg Oral tr24 1 tab once daily [Active]; omeprazole 40 mg Oral cpDR 1 cap once daily [Active]; Simvastatin Oral [Active]; - PMHx: 13:25 Diabetes - NIDDM; GERD; Hypertension; bp - Immunization history:: Adult Immunizations unknown. - Social history:: Smoking status: unknown. - Family history:: not pertinent. - Hospitalizations: : No recent hospitalization is reported. Screenin:40 Abuse screen: Denies threats or abuse. Denies injuries from another. Nutritional bp screening: No deficits noted. Tuberculosis screening: No symptoms or risk factors identified. Fall Risk None identified. Assessment: 12:40 General: SEE TRIAGE NOTE. bp 13:35 Reassessment: No changes from previously documented assessment. Patient and/or family bp updated on plan of care and expected duration. Pain level reassessed. CT PENDING. 14:53 Reassessment: ALL CURRENT ORDERS COMPLETED, MD AT B/S FOR RE-EVAL. bp 16:00 Reassessment: No changes from previously documented assessment. Patient and/or family bp updated on plan of care and expected duration. Pain level reassessed. ADMIT INITIATED. HOSPITALIST AT B/S. 17:29 Reassessment: No changes from previously documented assessment. Patient and/or family bp updated on plan of care and expected duration. Pain level reassessed. ADMIT IN PROCESS. 20:00 Reassessment: Patient given sandwich and drink at this time; at bedside. General: lp1 Appears in no apparent distress. Behavior is calm, cooperative, appropriate for age. Pain: Complains of pain in chest Pain does not radiate. Pain currently is 4 out of 10 on a pain scale. Neuro: Level of Consciousness is awake, alert, obeys commands, Oriented to person, place, time, situation. Cardiovascular: Patient's skin is warm and dry. Respiratory: Respiratory effort is even, unlabored, Breath sounds are clear bilaterally. GI: No signs and/or symptoms were reported involving the gastrointestinal system. : No signs and/or symptoms were reported regarding the genitourinary system. EENT: No signs and/or symptoms were reported regarding the EENT system. Derm: Skin is pink, warm \T\ dry. Musculoskeletal: No deficits noted. Vital Signs: 12:38 BP 215 / 68; Pulse 76; Resp 16; Temp 98; Pulse Ox 99% ; Weight 97.52 kg; bp 13:34 BP 116 / 74; Pulse 73; Resp 16; Pulse Ox 97% ; bp 14:53 BP 134 / 86; Pulse 71; Resp 9; Pulse Ox 98% ; bp 16:00 BP 115 / 70; Pulse 81; Resp 14; Pulse Ox 99% ; bp 17:30 BP 124 / 91; Pulse 80; Resp 17; Pulse Ox 98% ; bp 18:30 BP 108 / 75; Pulse 67; Resp 10; Pulse Ox 98% ; bp 20:00 BP 120 / 80; Pulse 77; Resp 17; Temp 98.1(O); Pulse Ox 100% on R/A; Pain 4/10; lp1 ED Course: 12:38 Patient arrived in ED. am2 12:40 Patient has correct armband on for positive identification. Bed in low position. Call bp light in reach. Side rails up X2. Adult w/ patient. power barker operator on. Pulse ox on. NIBP on. 12:40 Inserted saline lock: 20 gauge in left antecubital area, using aseptic technique. Blood bp collected. Patient maintains SpO2 saturation greater than 95% on room air. 12:44 Joselito Jenkins MD is Attending Physician. rn 13:02 [place] Cummins, JOANNE is Primary Nurse. bp 13:07 XRAY Chest (1 view) In Process Unspecified. EDMS 13:20 Triage completed. bp 13:28 Arm band placed on. bp 14:09 CT Aorta for Dissection In Process Unspecified. EDMS 15:34 Warm blanket given. Pillow given. [facility] 15:36 Benton Degroot DO is Hospitalizing Provider. rn 19:15 Primary Nurse role handed off by Montana Cummins, JOANNE mw2 19:56 Skylar Carney, JOANNE is Primary Nurse. lp1 20:06 No provider procedures requiring assistance completed. Patient admitted, IV remains in lp1 place. Administered Medications: 13:17 Drug: Demerol (meperidine) 50 mg Route: IVP; Site: left antecubital; bp 16:09 Follow up: Response: Pain is decreased bp 13:17 Drug: Zofran (Ondansetron) 4 mg Route: IVP; Site: left antecubital; bp 16:12 Follow up: Response: No adverse reaction bp 15:50 Drug: Lovenox (enoxaparin) 1 mg/kg Route: Sub-Q; Site: right lower abdomen; bp 16:10 Follow up: Response: No adverse reaction bp 15:50 Drug: Aspirin Chewable Tablet 324 mg Route: PO; bp 16:10 Follow up: Response: No adverse reaction bp Outcome: 15:37 Decision to Hospitalize by Provider. rn 20:06 Condition: stable lp1 20:06 Instructed on the need for admit. 20:44 Admitted to Tele room 428, with chart, Report called to JOANNE Corrales lp1 21:04 Patient left the ED. lp1 Signatures: Dispatcher [employer] EDMS Joselito Jenkins MD MD rn Pena, Laura, RN RN lp1 Renetta Shin [facility] Michela Steward 2 Montana Cummins RN RN bp Logan JuliaBecca 2 Corrections: (The following items were deleted from the chart) 15:48 12:38 BP 127 / 68; Pulse 76bpm; Resp 16bpm; Pulse Ox 99%; Temp 98F; bp bp 17:30 16:00 Reassessment: No changes from previously documented assessment. Patient and/or bp family updated on plan of care and expected duration. Pain level reassessed. bp
--- NOTE | 2021-03-16 15:37 | EDPHYS ---
Physician Documentation [facility] Name: Kye Marley Age: 55 yrs Sex: Male : 1965 Arrival Date: 03/16/2021 Time: 12:38 Bed 3 Private MD: ED Physician Joselito Jenkins HPI: 03/16 13:29 This 55 yrs old Male presents to ER via Ambulatory with complaints of Chest rn Pain. 13:29 The patient or guardian reports chest pain that is located primarily in the substernal rn area. Onset: 40 minute(s) ago. The pain radiates to the scapula on both sides. Associated signs and symptoms: Pertinent positives: None. Pertinent negatives: abdominal pain, headache, lower extremity swelling, lightheadedness, shortness of breath, syncope, vomiting. The chest pain is described as a heaviness, a pressure. Duration: The patient or guardian reports a single episode, that is still ongoing. Modifying factors: The symptoms are alleviated by nothing. the symptoms are aggravated by nothing. Severity of pain: At its worst the pain was moderate in the emergency department the pain is unchanged. The patient has not experienced similar symptoms in the past. The patient has not recently seen a physician. Reports fishing, nothing strenuous and no injury, + substernal chest pain with radiation to neck and jaw, and left shoulder and midscapular region. Reports neg nuclear stress test 6 months ago. No fever/cough/sob. No abd pain. . Historical: - Allergies: 13:25 Morphine; bp - Home Meds: 13:25 Bupropion Oral [Active]; lisinopril 20 mg Oral tab 1 tab once daily [Active]; metformin bp 500 mg Oral tr24 1 tab once daily [Active]; omeprazole 40 mg Oral cpDR 1 cap once daily [Active]; Simvastatin Oral [Active]; - PMHx: 13:25 Diabetes - NIDDM; GERD; Hypertension; bp - Immunization history:: Adult Immunizations unknown. - Social history:: Smoking status: unknown. - Family history:: not pertinent. - Hospitalizations: : No recent hospitalization is reported. ROS: 13:29 Constitutional: Negative for fever, chills, and weight loss, Eyes: Negative for injury, rn pain, redness, and discharge, Neck: Negative for injury, pain, and swelling, Cardiovascular: Negative for palpitations, and edema, Respiratory: Negative for shortness of breath, cough, wheezing, and pleuritic chest pain, Abdomen/GI: Negative for abdominal pain, nausea, vomiting, diarrhea, and constipation, Back: Negative for injury : Negative for injury, bleeding, discharge, and swelling, MS/Extremity: Negative for injury and deformity, Skin: Negative for injury, rash, and discoloration, Neuro: Negative for headache, weakness, numbness, tingling, and seizure. Exam: 13:29 Constitutional: This is a well developed, well nourished patient who is awake, alert, rn appears uncomfortable Head/Face: Normocephalic, atraumatic. Eyes: Periorbital areas with no swelling, redness, or edema. Cardiovascular: Regular rate and rhythm. No pulse deficits. Respiratory: No increased work of breathing, no retractions or nasal flaring. Abdomen/GI: soft, non-tender, no masses Skin: Warm, dry MS/ Extremity: Pulses equal, no cyanosis. Neuro: Awake and alert, GCS 15 Vital Signs: 12:38 BP 215 / 68; Pulse 76; Resp 16; Temp 98; Pulse Ox 99% ; Weight 97.52 kg; bp 13:34 BP 116 / 74; Pulse 73; Resp 16; Pulse Ox 97% ; bp 14:53 BP 134 / 86; Pulse 71; Resp 9; Pulse Ox 98% ; bp 16:00 BP 115 / 70; Pulse 81; Resp 14; Pulse Ox 99% ; bp 17:30 BP 124 / 91; Pulse 80; Resp 17; Pulse Ox 98% ; bp 18:30 BP 108 / 75; Pulse 67; Resp 10; Pulse Ox 98% ; bp 20:00 BP 120 / 80; Pulse 77; Resp 17; Temp 98.1(O); Pulse Ox 100% on R/A; Pain 4/10; lp1 MDM: 12:45 Patient medically screened. rn 15:12 Differential diagnosis: abnormal EKG, acute myocardial infarction, acute pericarditis, rn anxiety, coronary artery disease chest wall pain, costochondritis, esophagitis, gastritis, gastroesophageal reflux disease (GERD), pleurisy, pneumothorax. Data reviewed: vital signs, nurses notes, lab test result(s), radiologic studies, CT scan, plain films, and as a result, I will. Counseling: I had a detailed discussion with the patient and/or guardian regarding: the historical points, exam findings, and any diagnostic results supporting the discharge/admit diagnosis, lab results, radiology results. ED course: No acute etiology for chest pain found, will page cardiology for recommendation given neg trop here and neg nuclear stress just 6 months ago with Aleks joyce. Awaiting call back from Dr. Latif. . 15:35 The patient was given aspirin in the Emergency Department. ED course: COnsulted with rn Dr. Latif, recommends admission for cath, concerned for triple vessel disease, will anticoagulate and admit to Dr. Degroot. . 03/16 12:52 Order name: Basic Metabolic Panel; Complete Time: 14:19 rn 03/16 12:52 Order name: CBC with Diff; Complete Time: 13:42 rn 03/16 12:52 Order name: Magnesium; Complete Time: 14:19 rn 03/16 12:52 Order name: NT PRO-BNP; Complete Time: 14:19 rn 03/16 12:52 Order name: PT-INR; Complete Time: 14:19 rn 03/16 12:52 Order name: Troponin (emerg Dept Use Only); Complete Time: 14:19 rn 03/16 12:52 Order name: XRAY Chest (1 view); Complete Time: 14:49 rn 03/16 12:52 Order name: CT Aorta for Dissection; Complete Time: 14:49 rn 03/16 16:09 Order name: COVID-19 : Document "Date of Symptom Onset" if Symptomatic. ll1 03/16 19:08 Order name: SARS-COV-2 RT PCR EDMS 03/16 12:52 Order name: EKG; Complete Time: 12:53 rn 03/16 12:52 Order name: Cardiac monitoring; Complete Time: 13:02 rn 03/16 12:52 Order name: EKG - Nurse/Tech; Complete Time: 13:02 rn 03/16 12:52 Order name: IV Saline Lock; Complete Time: 13:19 rn 03/16 12:52 Order name: Labs collected and sent; Complete Time: 13:18 rn 03/16 12:52 Order name: O2 Per Protocol; Complete Time: 13:02 rn 03/16 12:52 Order name: O2 Sat Monitoring; Complete Time: 13:02 rn Administered Medications: 13:17 Drug: Demerol (meperidine) 50 mg Route: IVP; Site: left antecubital; bp 16:09 Follow up: Response: Pain is decreased bp 13:17 Drug: Zofran (Ondansetron) 4 mg Route: IVP; Site: left antecubital; bp 16:12 Follow up: Response: No adverse reaction bp 15:50 Drug: Lovenox (enoxaparin) 1 mg/kg Route: Sub-Q; Site: right lower abdomen; bp 16:10 Follow up: Response: No adverse reaction bp 15:50 Drug: Aspirin Chewable Tablet 324 mg Route: PO; bp 16:10 Follow up: Response: No adverse reaction bp Disposition: 03/16/21 15:37 Hospitalization ordered by Benton Degroot for Observation. Preliminary diagnosis is Chest pain, unspecified. - Bed requested for Telemetry/MedSurg (observation). - Status is Observation. lp1 - Condition is Stable. - Problem is new. - Symptoms have improved. Signatures: Dispatcher [employer] EDMS Joselito Jenkins MD MD rn Pena, Laura, RN RN lp1 Catherine Martínez RN RN cg Montana Cummins RN RN bp Corrections: (The following items were deleted from the chart) 20:22 15:37 Hospitalization Ordered by Benton Degroot DO for Observation. Preliminary cg diagnosis is Chest pain, unspecified. Bed requested for Telemetry/MedSurg (observation). Status is Observation. Condition is Stable. Problem is new. Symptoms have improved. rn 21:04 20:22 03/16/2021 15:37 Hospitalization Ordered by Benton Degroot DO for Observation. lp1 Preliminary diagnosis is Chest pain, unspecified. Bed requested for Telemetry/MedSurg (observation). Status is Observation. Condition is Stable. Problem is new. Symptoms have improved. cg
[2021-03-16] MEDS ORDERED: ENOXAPARIN 100 MG/ML SYR SQ ONE (16:21)
[2021-03-16] MEDS ORDERED: ASPIRIN 81 MG CHEWABLE TABLET ONE (16:21)
--- NOTE | 2021-03-16 16:43 | P.HP ---
Certification for Inpatient Patient admitted to: Inpatient With expected LOS: >2 Midnights Patient will require the following post-hospital care: None Practitioner: I am a practitioner with admitting privileges, knowledge of patient current condition, hospital course, and medical plan of care. Services: Services provided to patient in accordance with Admission requirements found in Title 42 Section 412.3 of the Code of Federal Regulations Patient History Date of Service: 03/16/21 Primary Care Provider: Dr. Lopez([place], [place]); Cardiology-Dr. Lock Reason for admission: Chest pain History of Present Illness: 55-year-old male with history of diabetes, hypertension, hyperlipidemia, GERD, and prior tobacco use. Patient presented with chest pain Patient was fishing today when he start to have some substernal chest pain. It radiated to the back and to the left jaw. He did not have any significant chest pain, nausea vomiting with this. Chest pain persisted. Patient initially rated the pain about a 7. Now around 4. He came to the ER for further evaluation. In the ER patient was evaluated. Vital signs stable. White count 12.6, hemoglobin 15. Platelet count 280. Sodium 140, potassium 4.5. BUN of 16, creatinine 1.08 with a GFR 70. Glucose 157. Troponin unremarkable, CT scan- dissection negative CT scan of the a order. No acute findings of the chest, abdomen and upper pelvis. 4.8 cm benign lower right pole renal cyst noted. EKG findings were discussed with cardiology. Patient admitted for further evaluation and treatment. Cardiology suspects CAD disease. Patient was seen in September of 2020. That time he was sent home from the ER in followed up with cardiology. Patient had subsequent cardiac stress test which was unremarkable. Patient reports tobacco abuse in the past. He recently stopped tobacco in August of this year. He also has a distant history of alcohol use. Patient gets the majority of his care in [place]. He sees cardiology locally. Allergies morphine Allergy (Verified 09/07/20 10:47) UNK Home medications list reviewed: Yes Home Medications: Aspirin Chewable [Aspirin Chewable*] 81 mg PO DAILY 09/08/20 Bupropion *Xl* [Wellbutrin XL*] 150 mg PO BID 09/08/20 Lisinopril [Zestril] 10 mg PO DAILY 09/08/20 Metformin ER [Glucophage ER*] 500 mg PO DAILY 09/08/20 Omeprazole 20 mg PO BID 30 Days #60 capsule. 09/08/20 Simvastatin 20 mg PO BEDTIME 09/08/20 terbinafine HCL [Terbinafine HCl] 250 mg PO DAILY 09/08/20 - Past Medical/Surgical History Diabetic: Yes -: Hypertension -: Diabetes mellitus type 2 -: Hyperlipidemia -: Paresthesias from cervical spine injury -: GERD -: C5 disc surgery with prosthetic insertion Psychosocial/ Personal History: Patient is . He works for [employer]. - Family History Father -: Heart disease, Other (see notes) (Alzheimer's dementia) - Social History Smoking Status: Former smoker Alcohol use: No CD- Drugs: No Caffeine use: Yes Place of Residence: Home Review of Systems General: As per HPI Eyes: Unremarkable ENT: Unremarkable Respiratory: Unremarkable Cardiovascular: Chest Pain, As per HPI Gastrointestinal: Unremarkable Genitourinary: Unremarkable Musculoskeletal: Unremarkable Integumentary: Unremarkable Neurological: Unremarkable Lymphatics: Unremarkable Physical Examination - Physical Exam General: Alert, In no apparent distress, Oriented x3, Cooperative HEENT: Atraumatic, Normocephalic, PERRLA, Mucous membr. moist/pink Neck: Supple Respiratory: Clear to auscultation bilaterally, Normal air movement Cardiovascular: Normal pulses, Regular rate/rhythm Gastrointestinal: Normal bowel sounds, Non-distended, No ascites, No rebound, No guarding Musculoskeletal: No erythema, No tenderness, No warmth Integumentary: No tenderness/swelling, No erythema, No warmth, No cyanosis Neurological: Normal speech, Normal strength at 5/5 x4 extr, Normal tone, Normal affect - Studies Laboratory Data (last 24 hrs) 03/16/21 13:17: PT 12.3, INR 1.07 03/16/21 13:17: WBC 12.60 H, Hgb 15.3, Hct 46.5, Plt Count 280 03/16/21 13:17: Sodium 140, Potassium 4.5, BUN 16, Creatinine 1.08, Glucose 157 H, Magnesium 2.1 Assessment and Plan - Plan Impression: Chest pain suspicious for unstable angina/CAD Hypertension Diabetes mellitus type 2 Hyperlipidemia GERD Plan: Chest pain suspicious for unstable angina/CAD: Patient will be admitted for further evaluation and treatment. ER discuss case with cardiology. Cardiology suspects CAD disease due to his prior normal cardiac stress tests and new EKG findings. Patient will be admitted for further evaluation. Cardiology plans for heart catheterization on Thursday. Cardiology recommends inpatient status. Continue DVT prophylaxis-Lovenox. Will adjust accordingly if cardiac enzymes abnormal. Continue aspirin, lisinopril and Lipitor. Will monitor cardiac enzymes and telemetry. Will check hemoglobin A1c and fasting lipid panel. Will adjust the medication accordingly. Continue to hold metformin in preparation for heart catheterization Thursday. Will provide medication for pain and chest pain. Await findings from heart catheterization on Thursday. Hypertension: Restart lisinopril. Will monitor and adjust appropriately. Diabetes mellitus type 2: Hold metformin in preparation for heart catheterization. Will monitor Accu-Cheks. Sliding scale in place. Will check hemoglobin A1c. Hyperlipidemia: Increase Lipitor to 80 mg daily. Will obtain fasting lipid panel. GERD: Will provide medication Code status: Patient is full code DVT prophylaxis: Lovenox Advanced care planning-30 min: Patient plans to be discharged home at discharge. Discharge Plan: Home Plan to discharge in: Greater than 2 days - Advance Directives Does patient have a Living Will: No Does patient have a Durable POA for Healthcare: No - Code Status/Comfort Care Code Status Assessed: Yes (Patient is full code) Time Spent Managing Pts Care (In Minutes): 55
[2021-03-16] MEDS ORDERED: ACETAMINOPHEN 500 MG TAB PO PRN (20:57)
[2021-03-16] MEDS ORDERED: HYDROCODONE/APAP 7.5/325 MG TAB PO PRN (20:57)
[2021-03-16] MEDS ORDERED: MEPERIDINE HCL 25 MG/ML SYR IV PRN (20:57)
[2021-03-16] MEDS ORDERED: NITROGLYCERIN 0.4 MG/TAB SL PRN (20:57)
[2021-03-16] MEDS: INSULIN -REGULAR HUMAN 50 UNIT/0.5 ML ML SQ SCH ×2 (20:57→21:00)
[2021-03-16] MEDS ORDERED: ONDANSETRON 4 MG/2 ML VIAL IV PRN (20:57)
[2021-03-16] MEDS ORDERED: TRAMADOL HCL 50 MG TAB PO PRN (20:57)
[2021-03-16] MEDS ORDERED: ATORVASTATIN 80 MG TAB PO SCH (21:00)
[2021-03-16 21:41] VITALS: BMI 33.0
[2021-03-16 22:02] LABS: CKMB Creatine Kinase MB 109.3 ng/mL (1.0-3.6)
[2021-03-16] MEDS ORDERED: NITROGLYCERIN/D5W 50 MG/250 ML BTL IV PRN (22:30)
[2021-03-16] MEDS ORDERED: HEPARIN 5000 UNIT/ML 1 ML VIAL IV ONE (22:30)
[2021-03-16] MEDS ORDERED: HEPARIN/D5W 25,000 UNIT/500 ML BAG IV SCH (23:00)
[2021-03-16] MEDS ORDERED: HEPARIN/D5W 25,000 UNIT/500 ML BAG IV ONE (23:53)
[2021-03-16] MEDS ORDERED: NITROGLYCERIN/D5W 50 MG/250 ML BTL IV ONE (23:53)
[2021-03-16] MEDS ORDERED: HEPARIN 5000 UNIT/ML 1 ML VIAL ONE (23:53)
[2021-03-17 00:09] VITALS: O2SAT 98
--- NOTE | 2021-03-17 01:50 | P.DS ---
Admission Date: 03/16/21 Discharge Date: 03/17/21 Primary Care Provider: Dr. Lopez([place], [place]); Cardiology-Dr. Lock Discharge Condition: SERIOUS Reason for Admission: Chest pain Consultations: Cardiology Dr. Latif Procedures: Chest x-ray IMPRESSION: No acute cardiopulmonary process. Patient has a chronic interstitial pattern is not clearly different from comparison. Mild edema or infiltrate can be masked by the background pattern. CT dissection protocol FINDINGS: Aorta is normal in diameter with no dissection or other acute aortic findings. Reconstruction images show no significant findings. There is tortuosity of the distal aorta and iliac vasculature. Pulmonary arteries are normal as well. No cardiomegaly, pericardial thickening or pericardial effusion. No mass or infiltrate in the lung parenchyma. No pleural thickening, pleural effusion or pneumothorax. No abnormal mediastinal or hilar mass or lymphadenopathy seen. No chest wall mass or abnormal axillary lymphadenopathy. Celiac, SMA and renal arteries show no suspicious findings. Solid abdominal viscera and bowel show no significant findings. A 4.8 centimeter benign lower pole right renal cyst is present. No mass or abnormal lymphadenopathy. No free air, free fluid or inflammatory stranding. No urinary bladder abnormality. IMPRESSION: Negative CT scan of the aorta. No acute findings on chest, abdomen and upper pelvis examination. Medical problem list NSTEMI suspect ACS Hypertension Diabetes mellitus type 2 Hyperlipidemia GERD Brief History of Present Illness: 55-year-old male with history of diabetes mellitus type 2, hypertension, hyperlipidemia presents emergency department for chest tightness radiating to jaw, queasiness. Patient evaluated in the emergency department, initial troponin negative, EKG with what appears to be only repolarization, CT dissection protocol negative for acute findings. Patient is admitted for chest pain rule out. Hospital Course: Patient was admitted, case was discussed with cardiology who plan for heart catheterization 03/18/2021, patient smart on telemetry, chest pain was mild rated 4/10. 2nd troponin came back significantly elevated at a level of 23, cardiology was immediately contacted who recommended initiation of heparin drip, nitroglycerin drip, transfer to ICU and transfer to tertiary center for urgent intervention. Cardiology suspects multivessel disease given normal stress test in September. Patient was transferred to the ICU and placed on heparin/n itroglycerin drips, case was discussed with cardiology at [facility] (Dr. Mantilla) and patient was accepted for transfer to the CCU. Patient was transferred with stable vital signs on heparin/nitroglycerin drip. Vital Signs/Physical Exam: Temp Pulse Resp BP Pulse Ox 98.6 F 87 14 139/76 100 03/17/21 00:01 03/17/21 00:01 03/17/21 00:01 03/17/21 00:01 03/17/21 00:01 General: Alert, In no apparent distress HEENT: Atraumatic, PERRLA, EOMI Neck: Supple, JVD not distended Respiratory: Clear to auscultation bilaterally, Normal air movement Cardiovascular: Regular rate/rhythm, Normal S1 S2 Gastrointestinal: Normal bowel sounds, No tenderness Musculoskeletal: No tenderness Integumentary: No rashes Neurological: Normal speech, Normal tone, Normal affect Lymphatics: No axilla or inguinal lymphadenopathy Laboratory Data at Discharge: WBC 12.60 K/uL (4.3-10.9) H 03/16/21 13:17 Hgb 15.3 g/dL (13.6-17.9) 03/16/21 13:17 Hct 46.5 % (39.6-49.0) 03/16/21 13:17 Plt Count 280 K/uL (152-406) 03/16/21 13:17 PT 12.3 SECONDS (9.5-12.5) 03/16/21 13:17 INR 1.07 03/16/21 13:17 Sodium 140 mmol/L (136-145) 03/16/21 13:17 Potassium 4.5 mmol/L (3.5-5.1) 03/16/21 13:17 BUN 16 mg/dL (7-18) 03/16/21 13:17 Creatinine 1.08 mg/dL (0.55-1.3) 03/16/21 13:17 Glucose 157 mg/dL (74-106) H 03/16/21 13:17 Magnesium 2.1 mg/dL (1.8-2.4) 03/16/21 13:17 Troponin I 23.00 ng/mL (0.0-0.045) H* 03/16/21 21:16 Home Medications: Aspirin Chewable [Aspirin Chewable*] 81 mg PO DAILY 09/08/20 Lisinopril [Zestril] 10 mg PO DAILY 09/08/20 Metformin ER [Glucophage ER*] 500 mg PO DAILY 09/08/20 Simvastatin 40 mg PO BEDTIME 09/08/20 Omeprazole 40 mg PO DAILY 03/16/21 Physician Discharge Instructions: Please continue with care at [facility] Diet: NPO Followup: IKE RAMIRES [Primary Care Provider] - Time spent managing pt's care (in minutes): 55
[2021-03-17 02:43] VITALS: BP 104/69; TEMP 97.8
[2021-03-17] MEDS ORDERED: PANTOPRAZOLE 40MG TABLET PO SCH (06:30)
[2021-03-17] MEDS ORDERED: ENOXAPARIN 40 MG/0.4 ML SQ SCH (09:00)
[2021-03-17] MEDS ORDERED: ASPIRIN EC 81 MG TAB PO SCH (09:00)
[2021-03-17] MEDS ORDERED: lisinopriL 10 MG TAB PO SCH (09:00)
== END 2021-03-17 02:35 | disposition short-term general hospital (02) | DRG 282 ==
LOC: ER 12:37 → ERHOLD 16:28 → 4TH 20:45
PROVIDERS: ADMIT Family Medicine; ATTEND Family Medicine
DX: I21.4 Non-ST elevation (NSTEMI) myocardial infarction (principal); I24.9 Acute ischemic heart disease, unspecified; I10 Essential (primary) hypertension; E11.9 Type 2 diabetes mellitus without complications; E78.5 Hyperlipidemia, unspecified; K21.9 Gastro-esophageal reflux disease without esophagitis; Z20.822 Contact with and (suspected) exposure to COVID-19; Z87.891 Personal history of nicotine dependence
CPT/HCPCS: 36415; 71045; 71275; 74175; 80048; 82550; 82553; 82947; 83735; 83880; 84484; 85025; 85610; 93005; 96372; 96374; 96375; 99285; J1644; J1650; J2175; J2405; Q9967; U0003

== ENCOUNTER 2022-04-28 11:10 | Day surgery (SDC) | payer BC ==
[2022-04-25 13:41] LABS: Absolute Lymphocytes (CBC) 2.4 K/uL (0.7-4.9); Hematocrit 45.9 % (39.6-49.0); Lymphocytes % 31.2 % (15.3-44.8); MCV 87.6 fL (80-100); RBC Red Blood Cell Count 5.24 M/uL (4.33-5.43)
[2022-04-25 13:45] LABS: Protime INR 1.04
--- NOTE | 2022-04-25 13:49 | RAD REPORT ---
EXAM DESCRIPTION: RAD - Chest Pa And Lat (2 Views) - 04/25/2022 1:41 pm CLINICAL HISTORY: Pre op pending heart catherization Chest pain. COMPARISON: Chest Single View dated 03/16/2021; Chest Single View dated 09/07/2020 FINDINGS: The lungs are clear. The heart is normal in size. No displaced fractures. IMPRESSION: No acute or concerning finding suspected.
[2022-04-25 14:03] LABS: Potassium 4.5 mmol/L (3.5-5.1)
[2022-04-25 14:24] LABS: SARS-CoV-2 Antigen Rapid Res Negative (Negative)
--- NOTE | 2022-04-28 09:32 | EKG ---
Test Date: 2022-04-25 Test Time: 13:13:10 Ramp Jockey: DIEGO MEASUREMENT RESULTS: Intervals: Rate: 49 WY: 188 QRSD: 108 QT: 408 QTc: 368 [place]: P: 38 WY: 188 QRS: -5 T: 38 INTERPRETIVE STATEMENTS: Marked sinus bradycardia Low voltage QRS Abnormal ECG Compared to ECG 03/16/2021 13:43:21 Low QRS voltage now present Sinus rhythm no longer present ST (T wave) deviation no longer present Electronically Signed On 04-28-22 09:25:22 CDT by Bebeto Lock
[2022-04-28] MEDS ORDERED: FENTANYL CITR 100 MCG/2 ML ONE (11:23)
[2022-04-28] MEDS ORDERED: HEPA 1000U/500MLS 2,000 UNIT/1,000 ML BAG IV ONE (11:23)
[2022-04-28] MEDS ORDERED: HEPARIN 5000 UNIT/ML 1 ML VIAL ONE (11:24)
[2022-04-28] MEDS ORDERED: VERAPAMIL HCL 10 MG/4 ML VIAL IV ONE (11:24)
[2022-04-28] MEDS ORDERED: MIDAZOLAM HCL 2 MG/2 ML INJ ONE (11:24)
[2022-04-28] MEDS ORDERED: HEPARIN 10,000 UNIT/10 ML VIAL IV ONE (11:25)
[2022-04-28] MEDS ORDERED: ATROPINE SULF 1 MG/10 ML SYR IV ONE (11:25)
[2022-04-28] MEDS ORDERED: NA CHLORIDE 0.9% 500 ML ONE (11:27)
--- NOTE | 2022-04-28 14:11 | OP ---
Date of Procedure: 04/28/2022 Surgeon: SAIRA MAGANA Procedures Performed: 1.Selective coronary angiogram. 2.Left heart catheterization. Indication: Chest pain with abnormal stress test and known coronary artery disease. Access: Right radial artery 6-Sammarinese closed with TR band. Complications: None. Bleeding: Less than 10 cc. Sedation: None. Description Of Procedure: After risks, benefits, and alternatives were explained, the patient agreed to procedure and signed informed consent. The patient was brought into the cardiac catheterization laboratory, prepped and draped in usual sterile fashion. Then, we accessed right radial artery using pediatric micropuncture kit, placed a 6-Sammarinese Slender sheath, and took a 5-Sammarinese [place] 4.0 cathete r into the aortic root, engaged the left main, and took standard views, then with the same catheter e ngaged the right coronary artery, took standard views and then the catheter was pushed over the wire into the LV, measured the LVEDP and pullback did not record any gradient. Then, I removed the cathet er and the sheath, placed TR band with good hemostasis. Findings: 1.Left main; large, normal. 2.LAD; large vessel with proximal patent stent about 20% to 30% iSR with CAROLYN-3 flow and then the mi d LAD, there was area of 30% to 40% stenosis and luminal irregularities. 3.Left circumflex; very large and dominant artery, supplies the inferior wall. No disease. 4.RCA; very small, nondominant, no disease. 5.Normal LVEDP between 8 and 10 mmHg. Conclusion: 1.Mild nonobstructive coronary artery disease. 2.Patent proximal LAD stent. 3.Normal LVEDP. Plan: Aggressive medical management. SR/MODL Voice ID: [id number] Report ID: [id number]
[2022-04-28 14:39] VITALS: O2SAT 97
[2022-04-28 15:16] VITALS: BP 108/68
== END 2022-04-28 15:20 | disposition home or self-care (01) ==
LOC: CCL 11:10
PROVIDERS: ATTEND Internal Medicine
DX: I25.10 Atherosclerotic heart disease of native coronary artery without angina pectoris (principal); I10 Essential (primary) hypertension; E78.5 Hyperlipidemia, unspecified; E11.9 Type 2 diabetes mellitus without complications; Z95.5 Presence of coronary angioplasty implant and graft; Z87.891 Personal history of nicotine dependence; Z88.5 Allergy status to narcotic agent; Z91.018 Allergy to other foods; Z20.822 Contact with and (suspected) exposure to COVID-19
CPT/HCPCS: 36415; 71046; 76937; 80048; 82947; 85025; 85610; 85730; 87811; 93005; 93458; C1893; J1644; J2250; J3010; J7040; Q9966